=== PATIENT | male | born 1950 | race Caucasian/White ===

== ENCOUNTER 2017-04-15 09:12 | Emergency (ER) | payer BC, OTHER ==
[~2017-04-15] VITALS: Ht 177.8 cm; Wt 89.4 kg
[2017-04-15 09:58] LABS: EOSINOPHIL (%) 0.5 % (0-5); EOSINOPHIL COUNT 0.1 K/uL (0-0.3); HEMATOCRIT 42.9 % (38.0-50.0); IMMATURE GRANULOCYTE (%) 0.5 % (0.0-0.7); IMMATURE GRANULOCYTE COUNT 0.1 K/uL; INSTRUMENT ABS NEUTROPHIL CT 11.9 K/uL; LYMPHOCYTE COUNT 0.9 K/uL (1.0-2.8); MCH 30.6 PG (29.0-34.0); MCHC 33.6 G/DL (30.0-36.0); MCV 91.1 FL (86-99); MEAN PLAT.VOLUME 11.8 uM^3 (9.0-12.4); MONOCYTE (%) 4.6 % (3-12); MONOCYTE COUNT 0.6 K/uL (0-0.8); NEUTROPHIL (%) 87.7 % (45-76); NEUTROPHIL COUNT 11.9 K/uL (1.8-6.4); PLATELET COUNT 252 K/uL (156-360); RBC DIS.WIDTH-CV 11.9 % (11.8-14.6); RED BLOOD COUNT 4.71 M/uL (4.00-5.50); WHITE BLOOD COUNT 13.6 K/uL (4.1-10.2)
[2017-04-15 10:04] LABS: PROTHROMBIN TIME 11.4 SEC (10.2-12.9)
[2017-04-15 10:06] LABS: PTT 26.1 SEC (25-37)
[2017-04-15 10:08] LABS: CHLORIDE 109 mEq/L (99-109); POTASSIUM 4.9 mEq/L (3.7-5.4); SODIUM 142 mEq/L (136-147)
[2017-04-15 10:10] LABS: GLUCOSE 134 mg/dL (70-99)
[2017-04-15 10:12] LABS: ANION GAP 10 MEQ/L (2-14); TOTAL BILIRUBIN 0.6 mg/dL (0.0-1.0)
[2017-04-15 10:14] LABS: ALKALINE PHOSPHATASE 64 IU/L (3-129); GFR ESTIMATE (CALCULATED) > 59 mL/min/
[2017-04-15 10:15] LABS: UREA NITROGEN (BUN) 21 mg/dL (9-23)
[2017-04-15 10:16] LABS: DIRECT BILIRUBIN 0.2 mg/dL (0.0-0.3)
[2017-04-15 10:19] LABS: TROP-I INTERPRETATION NEGATIVE; TROPONIN-I < 0.01 ng/mL (0.0-0.30)
[2017-04-15 11:33] LABS: ADD MIUA? YES; BILIRUBIN NEGATIVE; BLOOD LARGE; COLOR YELLOW ((YELLOW)); GLUCOSE (STRIP) NEGATIVE; KETONES NEGATIVE; LEUKOCYTES TRACE; NITRITE NEGATIVE; PROTEIN (STRIP) 100; SPECIFIC GRAVITY 1.026 (1.000-1.030); UROBILINOGEN 0.2 MG/DL (0.2-1.0)
[2017-04-15 11:49] LABS: BACTERIA RARE /HPF; BUDDING YEAST 1+; EPITHELIAL CELLS RARE /HPF; HYALINE CASTS 0-5 /LPF; MUCUS TRACE /LPF; RED BLOOD CELLS TNTC /HPF (0-5); UCUL ADDED? YES
[2017-04-15] MEDS ORDERED: IBUPROFEN600 MG PO (12:49)
[2017-04-15] MEDS ORDERED: FLOMAX0.4 MG PO (12:49)
[2017-04-15] MEDS ORDERED: MORPHINE SULFAT15 MG PO (12:49)
[2017-04-15 12:51] LABS: TROP-I INTERPRETATION NEGATIVE; TROPONIN-I < 0.01 ng/mL (0.0-0.30)
[2017-04-15 14:05] VITALS: BP 116/67
[2017-04-15] MEDS ORDERED: DORYX200 MG PO (14:44)
== END 2017-04-15 14:05 | disposition home or self-care (01) ==
LOC: EME 09:12
PROVIDERS: Emergency Medicine
DX: N20.2 Calculus of kidney with calculus of ureter (principal); S40.869A Insect bite (nonvenomous) of unspecified upper arm, initial encounter; W57.XXXA Bitten or stung by nonvenomous insect and other nonvenomous arthropods, initial encounter; R00.1 Bradycardia, unspecified
CPT/HCPCS: 74176; 80048; 80076; 81003; 83605; 83880; 84484; 85025; 85610; 85730; 87086; 93005; 99281; 99285; J1885; J2270; J2405; J7030

== ENCOUNTER 2017-11-08 08:29 | Day surgery (SDC) | payer OTHER, BC ==
[~2017-11-08 08:29] MED LIST: DORYX200 MG PO; FLOMAX0.4 MG PO; IBUPROFEN600 MG PO; MORPHINE SULFAT15 MG PO
== END 2017-11-08 13:48 | disposition home or self-care (01) ==
LOC: CATH 08:29
DX: R94.39 Abnormal result of other cardiovascular function study (principal); R53.82 Chronic fatigue, unspecified; F17.210 Nicotine dependence, cigarettes, uncomplicated; E66.9 Obesity, unspecified; Z68.28 Body mass index [BMI] 28.0-28.9, adult
CPT/HCPCS: C1769; C1887; J1644; J2250; J3010